=== PATIENT | female | born 1950 | race Caucasian/White ===

== ENCOUNTER 2020-09-16 09:23 | Observation (INO) | payer OTHER, MEDICARE ==
[~2020-09-16] VITALS: Ht 154.9 cm; Wt 54.4 kg
[2020-09-16 10:43] LABS: BASOPHILS ABSOLUTE AUTO 0.02 K/mm3 (0.00-0.23); BASOPHILS PERCENT AUTO 0 % (0-2); EOSINOPHILS ABSOLUTE AUTO 0.05 K/mm3 (0.00-0.68); EOSINOPHILS PERCENT AUTO 1 % (0-6); Hematocrit 37.7 % (33.0-51.0); Hemoglobin 12.1 g/dL (11.5-16.0); IMMATURE GRAN ABSOLUTE AUTO 0.04 K/mm3 (0.00-0.10); IMMATURE GRAN PERCENT AUTO 1 % (0-1); LYMPHOCYTES ABSOLUTE AUTO 1.58 K/mm3 (0.84-5.20); LYMPHOCYTES PERCENT AUTO 21 % (21-46); MONOCYTES ABSOLUTE AUTO 0.48 K/mm3 (0.16-1.47); MONOCYTES PERCENT AUTO 6 % (4-13); Mean Corpuscular HGB 29.6 pg (26.0-34.0); Mean Corpuscular HGB Conc 32.1 g/dL (31.5-36.5); Mean Corpuscular Volume 92 fL (80-100); Mean Platelet Volume 9.4 fL (9.1-12.4); NEUTROPHILS ABSOLUTE AUTO 5.36 K/mm3 (1.96-9.15); NEUTROPHILS PERCENT AUTO 71 % (41-73); Platelet Count 175 K/mm3 (150-400); RDW Coefficient Variation 13.2 % (11.7-14.2); RDW Standard Deviation 45.1 fL (35.1-46.3); Red Blood Cell Count 4.09 M/mm3 (3.80-5.20); White Blood Cell Count 7.53 K/mm3 (4.00-11.30)
[2020-09-16 10:59] LABS: International Normalized Ratio 0.92; Prothrombin Time Results 9.9 Sec (9.7-11.5)
[2020-09-16 11:03] LABS: Alanine Aminotransfer (ALT/SGP 377 U/L (12-78); Albumin, Blood 3.7 g/dL (3.4-5.0); Albumin/Globulin Ratio 1.1 (0.8-1.8); Alk Phos 160 U/L (50-136); Anion Gap 6 mmol/L (6-16); Aspartate Aminotrans (AST/SGOT 172 U/L (12-37); Bilirubin, Total 0.7 mg/dL (0.1-1.0); Blood Urea Nitrogen 8 mg/dL (8-24); Bun/Creatinine Ratio 12.2 (12.0-20.0); CO2, Blood 25 mmol/L (21-32); Calcium, Blood 9.1 mg/dL (8.5-10.1); Chloride, Blood 109 mmol/L (98-108); Creatinine, Blood 0.66 mg/dL (0.40-1.00); Globulin, Blood 3.3 g/dL (2.2-4.0); Glomerular Filtration Rate >60 (60-); Glucose, Blood 114 mg/dL (70-99); Potassium, Blood 3.6 mmol/L (3.5-5.5); Sodium, Blood 140 mmol/L (136-145)
[2020-09-16] MEDS ORDERED: LISI5 PO (12:31)
[2020-09-16] MEDS ORDERED: Aspir 8181 MG PO (12:32)
[2020-09-16] MEDS ORDERED: CLOP75 PO (12:32)
[2020-09-16 12:48] LABS: Cholesterol 229 mg/dL (50-200); HDL Cholesterol 57 mg/dL (>39); LDL/HDL RATIO 2.6; Low Density Lipoprotein Chol 149 mg/dL (0-110); Triglycerides 117 mg/dL (30-160); Very Low Density Lipoprot Chol 23 mg/dL (6-32)
--- NOTE | 2020-09-16 16:41 | NUR ---
NEW ER ADMIT APPROX 1440, ACCOMPANIED TO RM BY DAUGHTER WHO ASSISTED w ADMIT PROCESS. DX CVA, PT HAS HX CVA APPROX 3 MONTHS AGO w RESIDUAL R SIDED WEAKNESS & MEMORY DEFICITS. @ THIS TIME VICTORINA, NO FACIAL DROOP, FOLLOWS COMMANDS. R GRILL ATTENDANT SLIGHTLY WEAKER THAN L, LESS COORDINATION. PT STATE INCREASED N/T & TREMOR R ARM, INCREASED N/T R LEG. HER DAUGHTER STATE SHE WAS ABLE TO BR WT TO GET INTO CAR. SHE IS BEDREST/BSC @ THIS TIME PENDING PT/OT EVAL. SBP ELEVATED 180'S, PT UNABLE TO TOLERATE ORAL ZESTRIL D/T N/V, PRN HYDALAZINE GIVEN. DR ASHLEY ORDER IV CHANDRAKANT, PEPCIMeena. RAD IN FOR ABD & CAROTID US.
--- NOTE | 2020-09-16 17:05 | NUR ---
LFTS ELEVATED. DR ASHLEY REVIEW RESULTS OF ABD US, STATE CONTINUE CURRENT TX, WILL MX OVERNITE & REASSESS IN AM. DR ALLEN CAROTID US, STATE SHE HAS CALLED PT DR MEGHAN Piedra UPDATE, MESSAGE RELAYED TO PT'S DAUGHTER.
--- NOTE | 2020-09-16 18:03 | NUR ---
BP IMPROVED, 143/68. SHE STATE NAUSEA RELIEF @ THIS TIME HOWEVER DECLINES ORAL MEDS/TYLENOL, STATES H/A MILD/TOLERABLE @ THIS TIME. WILL CONTINUE TO MX.
--- NOTE | 2020-09-17 04:50 | NUR ---
SHIFT SUMMARY PT HAS RESTED MOST OF THE NIGHT. SHE HAS DENIED NEEDS OR PAIN. PT HAD SOME ISSUES WITH NAUSEA DURING DAYSHIFT YESTERDAY THAT HAS IMPROVED AT THIS TIME. NO ACUTE NEURO CHANGES OVERNIGHT AND NO NEURO DEFICITS NOTED WITH ASSESSMENT. DAUGHTER AT BEDSIDE T/O THE NIGHT SUPPORT PERSON. CLEARANCE FROM DAYSHIFT EDUCATION COUNSELOR PER REPORT FROM SHALINI UNDERWOOD FOR DAUGHTER TO STAY PASS VISITING HOURS. PT DAUGHTER ASSISTS PT WITH ADLS AND CARE. PT 1PA TO BSC. NO ACUTE CHANGES OVERNIGHT. BED IN LOWEST POSITION, CALL LIGHT WITHIN REACH.
[2020-09-17 05:08] LABS: BASOPHILS ABSOLUTE AUTO 0.02 K/mm3 (0.00-0.23); BASOPHILS PERCENT AUTO 0 % (0-2); EOSINOPHILS ABSOLUTE AUTO 0.03 K/mm3 (0.00-0.68); EOSINOPHILS PERCENT AUTO 0 % (0-6); Hematocrit 36.3 % (33.0-51.0); Hemoglobin 11.8 g/dL (11.5-16.0); IMMATURE GRAN ABSOLUTE AUTO 0.03 K/mm3 (0.00-0.10); IMMATURE GRAN PERCENT AUTO 0 % (0-1); LYMPHOCYTES ABSOLUTE AUTO 1.92 K/mm3 (0.84-5.20); LYMPHOCYTES PERCENT AUTO 27 % (21-46); MONOCYTES ABSOLUTE AUTO 0.48 K/mm3 (0.16-1.47); MONOCYTES PERCENT AUTO 7 % (4-13); Mean Corpuscular HGB 29.7 pg (26.0-34.0); Mean Corpuscular HGB Conc 32.5 g/dL (31.5-36.5); Mean Corpuscular Volume 91 fL (80-100); Mean Platelet Volume 9.4 fL (9.1-12.4); NEUTROPHILS ABSOLUTE AUTO 4.75 K/mm3 (1.96-9.15); NEUTROPHILS PERCENT AUTO 66 % (41-73); Platelet Count 195 K/mm3 (150-400); RDW Coefficient Variation 13.2 % (11.7-14.2); RDW Standard Deviation 44.8 fL (35.1-46.3); Red Blood Cell Count 3.97 M/mm3 (3.80-5.20); White Blood Cell Count 7.23 K/mm3 (4.00-11.30)
[2020-09-17 05:41] LABS: Anion Gap 7 mmol/L (6-16); Blood Urea Nitrogen 12 mg/dL (8-24); Bun/Creatinine Ratio 16.9 (12.0-20.0); CO2, Blood 26 mmol/L (21-32); Calcium, Blood 8.7 mg/dL (8.5-10.1); Chloride, Blood 109 mmol/L (98-108); Creatinine, Blood 0.71 mg/dL (0.40-1.00); Glomerular Filtration Rate >60 (60-); Glucose, Blood 90 mg/dL (70-99); Potassium, Blood 3.6 mmol/L (3.5-5.5); Sodium, Blood 142 mmol/L (136-145)
[2020-09-17 11:49] LABS: Albumin, Blood 3.4 g/dL (3.4-5.0); Bilirubin, Direct 0.1 mg/dL (0.0-0.3); Bilirubin, Indirect 0.6 mg/dL (0.1-0.7); Bilirubin, Total 0.7 mg/dL (0.1-1.0); Globulin, Blood 3.3 g/dL (2.2-4.0); Total Protein, Blood 6.7 g/dL (6.4-8.2)
[2020-09-17] MEDS ORDERED: FAMO20 PO (12:57)
--- NOTE | 2020-09-17 14:20 | NUR ---
SHIFT SUMMARY BELA LEFT WITH HER DAUGHTER. PIV REMOVED. MEDS CALLED IN TO [facility] IN THE [facility]. PT ALREADY HAS F/U SCHEDULED WITH HER PCP ON 09/19. WHEELED OUT BY DAUGHTER. EDUCATION DONE ON LOW-SODIUM DIET, ON HER MEDS, AND POST OP FROM HER CAROTID SURGERY
--- NOTE | 2020-09-17 19:26 | NUR ---
Spiritual care note: Per admit trigger, I met with Mrs. Garg to offer information on advacned care planning. She was not interested and told me she was going home soon.
== END 2020-09-17 14:12 | disposition home or self-care (01) ==
LOC: ER 09:23 → MEDS 12:25 → ENPENDDIS 09-17 12:33 → MEDS 09-17 14:12
PROVIDERS: Emergency Medicine; ADMIT Internal Medicine
DX: I63.9 Cerebral infarction, unspecified (principal); G83.21 Monoplegia of upper limb affecting right dominant side; I10 Essential (primary) hypertension; R79.89 Other specified abnormal findings of blood chemistry; I77.89 Other specified disorders of arteries and arterioles; E78.5 Hyperlipidemia, unspecified; Z87.09 Personal history of other diseases of the respiratory system; Z98.890 Other specified postprocedural states; Z88.8 Allergy status to other drugs, medicaments and biological substances; Z91.013 Allergy to seafood; Z87.891 Personal history of nicotine dependence; Z79.82 Long term (current) use of aspirin; Z79.02 Long term (current) use of antithrombotics/antiplatelets
CPT/HCPCS: 36415; 70450; 70551; 76705; 80048; 80053; 80061; 80076; 85025; 85610; 85730; 93005; 93010; 93306; 93880; 96374; 96375; 97162; 99285-25; A9270; G0378; J0360; J1650; J2405; J3010